=== PATIENT | male | born 2000 | race Caucasian/White ===

== ENCOUNTER 2022-10-17 10:15 | Emergency (ER) | payer OTHER, SELFPAY ==
[2022-10-17 10:25] VITALS: BP 148/87; PULSE 74; RESP 16; TEMP 36.9; O2SAT 100
--- NOTE | 2022-10-17 10:28 | ED.EAR ---
HPI - Ear Problem General Chief complaint: Ear Stated complaint: EAR DRAINAGE Time Seen by Provider: 10/17/22 10:26 Source: patient and RN notes reviewed Mode of arrival: ambulatory Limitations: no limitations History of Present Illness HPI Narrative: 21-year-old male presents with concern for drainage from the right ear. He reports symptoms started after swimming. He denies pain, reports it feels sort of full. He reports mild rhinorrhea. Denies sore throat, fever, aches, chills, ear pain. MD Complaint: ear discharge Related Data Allergies Allergy/AdvReac Type Severity Reaction Status Date / Time No Known Allergies Allergy Verified 10/17/22 10:33 Review of Systems Review of Systems: CONSTITUTIONAL: Denies malaise, chills, sweats, or fever. EYES: Denies visual changes, redness, or discharge. ENT: Denies rhinorrhea, congestion, sinus pain, and sore throat. Reports right ear drainage CARDIOVASCULAR: Denies chest pain, palpitations, or edema. RESPIRATORY: Denies cough. Denies dyspnea. GASTROINTESTINAL: Denies abdominal pain, nausea, vomiting, diarrhea SKIN: Denies rash or itching. MUSCULOSKELETAL: Denies myalgia. NEUROLOGIC: Denies headache. All systems reviewed & are unremarkable except as noted in HPI and below PMFSH Comments At time of signature, agree with nursing past medical, surgical, social and family history. There is no relevant family history pertinent to the presenting complaint Exam Narrative: GENERAL: Well-appearing, well-nourished, and in no acute distress. HEAD: Normocephalic EYES: PERRLA, conjunctivae clear ENT: Nares clear. Mucous membranes moist. Left tM pearly huang with dull light reflex, right TM not visible due to purulent drainage; no tragal tenderness, right EAC green drainage. Oropharynx not erythematous without lesions. Tonsils not enlarged and without exudate, no drooling, no hoarseness, no trismus, uvula midline. NECK: Supple. No lymphadenopathy CHEST: Clear to auscultation, breath sounds equal. No wheezing, rhonchi, rales, or stridor. No respiratory distress, speaks in full sentences. HEART: Regular rate and rhythm. No murmur heard. SKIN: Warm, dry, no rash. NEURO: Alert and oriented x3. PSYCH: Normal mood and affect Course Course Emergency Course: Patient is aware of diagnosis, understands and agrees to treatment plan. Anticipatory guidance given. Patient agrees to follow-up as directed and is aware of reasons to seek care at the emergency department. Portions of this record may have been created with voice recognition software Level of Care: Express Care Visit Vital Signs Vital signs: Vital Signs Temperature 98.4 F 10/17/22 10:25 Pulse Rate 74 10/17/22 10:25 Respiratory Rate 16 10/17/22 10:25 Blood Pressure 148/87 H 10/17/22 10:25 Pulse Oximetry 100 10/17/22 10:25 Oxygen Delivery Room Air 10/17/22 10:25 Temperature 98.4 F 10/17/22 10:25 Pulse Rate 74 10/17/22 10:25 Respiratory Rate 16 10/17/22 10:25 Blood Pressure 148/87 H 10/17/22 10:25 Pulse Oximetry 100 10/17/22 10:25 Oxygen Delivery Room Air 10/17/22 10:25 Reviewed. Medical Decision Making MDM Narrative Medical decision making narrative: Differential diagnosis considered: Valenzuela virus, strep pharyngitis, allergic rhinitis, upper respiratory tract infection, sinusitis, rhinosinusitis, nasopharyngitis. viral pharyngitis, otitis media, otitis externa, otitis effusion, cerumen impaction, foreign body. Exam findings show no acute concerns or changes; patient is non-toxic appearing and is in no distress. Patient is appropriate for outpatient treatment and follow-up. Vital Signs Vital Signs: Vital Signs Temperature 98.4 F 10/17/22 10:25 Pulse Rate 74 10/17/22 10:25 Respiratory Rate 16 10/17/22 10:25 Blood Pressure 148/87 H 10/17/22 10:25 Pulse Oximetry 100 10/17/22 10:25 Oxygen Delivery Room Air 10/17/22 10:25 Temperature 98.4 F 10/17/22 10:25 Pulse Rate
== END 2022-10-17 10:36 | disposition home or self-care (01) ==
PROVIDERS: Emergency Provider Nurse Practitioner
DX: H60.91 Unspecified otitis externa, right ear (principal)
CPT/HCPCS: 99213; G0463